=== PATIENT | female | born 1975 | race American Indian/Alaskan Native ===

== ENCOUNTER 2022-05-17 16:05 | Emergency (ER) | payer BC, OTHER ==
[2022-05-17] MEDS ORDERED: Sodium Chloride 0.9% 10 ML Syringe FLUSH PRN (16:25)
[2022-05-17] MEDS ORDERED: Iopamidol 755 Mg/ML 100 ML Bottle IVPUSH ONE (16:40)
[2022-05-17 16:54] LABS: ANION GAP 13.6 mEq/L (7-13); CHLORIDE,CL 101 mmol/L (98-107); ESTIMATED GFR 109 mL/min (>=60); SODIUM,NA 139 mmol/L (136-145)
== END 2022-05-17 18:27 | disposition home or self-care (01) ==
LOC: DL.ED 16:05
DX: R55 Syncope and collapse (principal); Z88.1 Allergy status to other antibiotic agents
CPT/HCPCS: 36415; 70450; 70496; 70498; 80053; 83605; 83735; 84100; 84443; 85025; 86140; 93005; 99285; J3490; Q9967; 93010; 99284